=== PATIENT | male | born 1965 | race American Indian/Alaskan Native ===

== ENCOUNTER 2021-12-28 09:43 | Emergency (ER) | payer MEDICAID ==
[2021-12-28 10:41] LABS: Alanine Aminotransferase 146 units/L (7-56); Albumin 3.9 g/dL (3.9-5); BUN/Creatinine Ratio 12; Blood Urea Nitrogen 13 mg/dL (9-20); Calcium 8.7 mg/dL (8.4-10.2); Hemolysis Index 11
[2021-12-28 11:11] LABS: Eosinophils # (Auto) 0.2 K/mm3 (0.0-0.4); Eosinophils % (Auto) 6.4 % (0.0-4.3); Hematocrit 36.9 % (35.5-45.6); Hemoglobin 12.7 gm/dl (11.8-15.2); Mean Corpuscular HGB Conc 35 % (32-34); Mean Corpuscular Volume 99 fl (84-94); Monocytes # (Auto) 0.5 K/mm3 (0.0-0.8); Monocytes % (Auto) 13.2 % (0.0-7.3); Platelet Count 189 K/mm3 (140-440); Red Blood Count 3.72 M/mm3 (3.65-5.03); Red Cell Distribution Width 12.7 % (13.2-15.2)
[2021-12-28 12:30] LABS: Basophils % (Manual) 0 % (0.0-1.8); Total Cells Counted 100
[2021-12-28 12:32] LABS: Anisocytosis 1+; Hypochromasia 1+; Platelet Estimate Consistent w Auto
--- NOTE | 2021-12-28 19:50 | Emergency Department Report ---
<TUCKER WINN - Last Filed: 12/28/21 19:55> ED Psych HPI - General Chief Complaint: Psych Stated Complaint: SCHIZOPHRENIA Time Seen by Provider: 12/28/21 19:44 Source: patient, EMS Mode of arrival: Stretcher Limitations: No Limitations - History of Present Illness Initial Comments: Patient is a 56-year-old male presenting to the emergency department with complaint of suicidal ideations. Patient with history of schizophrenia. He also states he has been off of his medications. MD Complaint: suicidal ideation - Related Data Previous Rx's Medication Instructions Recorded Last Taken Type OLANzapine [Zyprexa] 10 mg PO QHS #30 tablet 12/29/21 Unknown Rx Allergies Allergy/AdvReac Type Severity Reaction Status Date / Time No Known Allergies Allergy Unverified 12/28/21 09:50 ED Review of Systems Constitutional: denies: chills, fever Eyes: denies: eye pain, eye discharge, vision change ENT: denies: ear pain, throat pain Respiratory: denies: cough, shortness of breath, wheezing Cardiovascular: denies: chest pain, palpitations Endocrine: no symptoms reported Gastrointestinal: abdominal pain. denies: nausea, diarrhea Genitourinary: denies: urgency, dysuria Musculoskeletal: denies: back pain, joint swelling, arthralgia Skin: denies: rash, lesions Neurological: denies: headache, weakness, paresthesias Psychiatric: denies: anxiety, depression Hematological/Lymphatic: denies: easy bleeding, easy bruising ED Past Medical Hx - Medications Home Medications: Home Medications Medication Instructions Recorded Confirmed Last Taken Type OLANzapine [Zyprexa] 10 mg PO QHS #30 tablet 12/29/21 Unknown Rx ED Physical Exam - General Limitations: No Limitations General appearance: alert, in no apparent distress - Head Head exam: Present: atraumatic, normocephalic - Eye Eye exam: Present: normal appearance - ENT ENT exam: Present: mucous membranes moist - Neck Neck exam: Present: normal inspection - Respiratory Respiratory exam: Present: normal lung sounds bilaterally. Absent: respiratory distress - Cardiovascular Cardiovascular Exam: Present: regular rate, normal rhythm. Absent: systolic murmur, diastolic murmur, rubs, gallop - GI/Abdominal GI/Abdominal exam: Present: soft, tenderness (ruq), normal bowel sounds - Rectal Rectal exam: Present: deferred - Extremities Exam Extremities exam: Present: normal inspection - Back Exam Back exam: Present: normal inspection - Neurological Exam Neurological exam: Present: alert, oriented X3 - Psychiatric Psychiatric exam: Present: suicidal ideation - Skin Skin exam: Present: warm, dry, intact, normal color. Absent: rash ED Course - Reevaluation(s) Reevaluation #1: 12/28/21 19:56 Patient's labs do demonstrate elevated LFTs. Is likely secondary to patient's alcohol use. Patient does have a alcohol level of 260. A ultrasound was ordered at the right upper quadrant but patient will likely be medically cleared and will be a psychiatric hold. We will avoid hepatotoxic medications. ED Medical Decision Making - Lab Data Result diagrams: 12/28/21 10:02 12/28/21 10:02 - Medical Decision Making Patient is a 56-year-old male presents emergency department complaint of suicidal ideations. Patient also states that he has depression. From chart review patient has a history of schizophrenia and states he has been off of his medications. Plan to obtain basic labs to medically clear and will reassess patient. ED Disposition Clinical Impression: Suicidal ideation, Elevated LFTs, Alcohol abuse Disposition: 01 HOME / SELF CARE / HOMELESS Is pt being admited?: No Does the pt Need Aspirin: No Condition: Stable Additional Instructions: OUTPATIENT MENTAL HEALTH RESOURCES [facility], [facility] Celena Esteban MD: [address] [facility] [address] [place] [address] [place], [place] [id number] [facility]: [facility] [address] [place] [address] [place] [address] [phone] [facility]: [facility]: [address] [facility] [address] [facility] [place] [address] [facility] [id number] [facility]: Shubham Jenkins MD: [id number] [facility] [address] [facility] [id number] [facility]: [address] [place], [place] [id number] [phone] [place] CRISIS AND ACCESS LINE: Prescriptions: OLANzapine [Zyprexa] 10 mg PO QHS #30 tablet Referrals: PRIMARY CARE, [Primary Care Provider] - 3-5 Days <ROMINA ORELLANA - Last Filed: 12/30/21 16:31> ED Review of Systems ROS: Stated complaint: SCHIZOPHRENIA Other details as noted in HPI ED Course Vital Signs 12/28/21 12/28/21 12/29/21 09:49 20:29 06:08 Temperature 97.9 F 98.9 F Pulse Rate 78 75 Respiratory 14 16 Rate Blood Pressure 104/75 103/77 [Left] O2 Sat by Pulse 98 98 99 Oximetry 12/29/21 08:04 Temperature 97.9 F Pulse Rate 78 Respiratory 18 Rate Blood Pressure 124/80 [Left] O2 Sat by Pulse 98 Oximetry ED Medical Decision Making - Lab Data Result diagrams: 12/28/21 10:02 12/28/21 10:02 Critical care attestation.: If time is entered above; I have spent that time in minutes in the direct care of this critically ill patient, excluding procedure time. ED Disposition Time of Disposition: 15:12
--- NOTE | 2021-12-28 21:46 | Ultrasound Report ---
ULTRASOUND ABDOMEN, LIMITED (RIGHT UPPER QUADRANT) INDICATION: elevated lfts. COMPARISON: None available. FINDINGS: Pancreas: Visualized portion shows no significant abnormality. Liver: Normal in size, measuring 15.3 cm. There is generalized increased echotexture. No suspicious l iver lesions. Normal portal venous flow. Gallbladder: Mildly distended without wall thickening or pericholecystic fluid. No gallstones are see n. Sonographic Li's sign: Not performed. Bile ducts: No significant abnormality. Common Bile Duct measures 3.8 mm. Free fluid: None. Additional Findings: None. IMPRESSION: 1. Increased hepatic echotexture, most commonly representing steatosis. 2. Mild distention of the gallbladder could be secondary to fasting. No cholelithiasis or sonographic evidence of acute cholecystitis. Signer Name: Anoop Ross MD Signed: 12/28/2021 9:42 PM Workstation Name: [id number]
[2021-12-29 01:40] LABS: WBC,Urine < 1.0 /HPF (0.0-6.0)
[2021-12-29 01:45] LABS: Amphetamine Screen,Urine PRESUMPTIVE NEGATIVE; Benzodiazepines Screen,Urine PRESUMPTIVE NEGATIVE; Cannabinoid Screen,Urine PRESUMPTIVE NEGATIVE; Cocaine Screen,Urine PRESUMPTIVE POSITIVE; Methadone Screen,Urine PRESUMPTIVE NEGATIVE; Opiate Screen,Urine PRESUMPTIVE NEGATIVE
[2021-12-29 01:53] LABS: Bilirubin,Urine Negative (Negative); Blood,Urine Small (Negative); Color,Urine Yellow (Yellow)
[2021-12-29 01:54] LABS: Protein,Urine <15 mg/dL mg/dL (Negative); Urobilinogen,Urine < 2.0 mg/dL (<2.0)
[2021-12-29 08:04] VITALS: BP 124/80
--- NOTE | 2021-12-29 11:57 | Event Note ---
Date: 12/29/21 Pt is been seen followed by the psychiatry team this morning just waiting for recommendation. Pt denies any other symptoms at this point. I discussed the elevated liver enzyme and able to connect his alcohol drinking with the abnormality and he promised to cut back on the alcohol abuse. Pt had negative Covid 19 reported this AM. No other modifying or associated symptoms mentioned. Pt seen by the psychiatry and discharged and discontinued the 1013 and recommended Zyprexa--
--- NOTE | 2021-12-29 13:23 | Consultation ---
History of Present Illness - Reason for Consult Consult date: 12/29/21 Reason for consult: Schizophrenia Requesting physician: TUCKER WINN - Chief Complaint Chief complaint: Hearing voices - History of Present Psychiatric Illness The patient, a 56 year old man, with a PMH of schizophrenia. The patient admits noncompliance with medications. He reports hearing voices often. He admits to hearing voices today but not distressed by the voices. He feels safe going home. Patient describes a good and stable mood, denies being depressed or excessively nervous. Patient eats and sleeps well. Patient denies panic attacks, recurrent nightmares or flashbacks. Patient denies symptoms suggestive of OCD or PTSD. Patient denies paranoia, thought interference and no features suggestive of hypo nafisa or nafisa. He completely denies suicidal or homicidal thoughts. PAST PSYCHIATRIC HISTORY: Diagnoses: Schizophrenia Suicide attempts or Self-harm behavior: 1 suicide attempt in the past Prior psychiatric hospitalizations: unknown Substance Abuse history: denies Previous psychiatric medications tried: Risperidone; Olanzapine Outpatient treatment: [facility] Family Psychiatric History None reported or documented SOCIAL HISTORY Marital Status: single Living Arrangements: lives with others Employment Status: unemployed, disabled Access to guns/weapons: denies Education: 9th grade History of Abuse: denies Legal History: denies ROS: Constitutional: Negative for weight loss ENT: Negative for stridor Respiratory: Negative for cough or hemoptysis All other systems reviewed and are negative MENTAL STATUS General Appearance and Behavior: age appropriate, good eye contact, cooperative with questioning and polite Cooperation: Cooperative Psychomotor Behavior: within normal limits Mood: OK Affect and affective range: Congruent with stated mood Thought Process: Fluent/Logical and Goal-directed Thought Content: Within reality Speech: Normal volume and Regular rate and rhythm Intellectual Functioning Average Suicidal Ideation: Denies SI Homicidal Ideation: Denies HI Impulse Control: intact Insight and Judgment: normal insight and judgment Memory: Normal Attention: Normal Orientation: alert and oriented RECOMMENDATIONS MEDICATIONS: Olanzapine 10mg qhs Risks, benefits and alternatives of medications discussed with the patient, questions answered and consent obtained from patient. PSYCHOTHERAPY: Supportive psychotherapy provided MEDICAL: Per primary team KINDER TEACHER: No DISPOSITION: Per primary team, no indication for acute inpatient psychiatric hospitalization at this time LEGAL STATUS: 1013 discontinued FOLLOW-UP: Will sign off The patient agreed on the treatment plan, understood the risk, benefit, alternative treatment, potential consequence of no treatment, and gave informed consent. I have reviewed this treatment plan, including potential risks and benefits of medications, with the patient and/or family members and relevant hospital providers. Please contact with any questions and/or concerns. Medications and Allergies Allergies Allergy/AdvReac Type Severity Reaction Status Date / Time No Known Allergies Allergy Unverified 12/28/21 09:50 Mental Status Exam - Vital signs Last Vital Signs Temp 97.9 F 12/29/21 08:04 Pulse 78 12/29/21 08:04 Resp 18 12/29/21 08:04 BP 124/80 12/29/21 08:04 Pulse Ox 98 12/29/21 08:04 Results Result Diagrams: 12/28/21 10:02 12/28/21 10:02 Abnormal lab results 12/28/21 Range/Units 00:46 Urine Blood Small A (Negative) All other labs normal.
== END 2021-12-29 16:22 | disposition home or self-care (01) ==
LOC: ED 09:43
DX: R45.851 Suicidal ideations (principal); R74.01 Elevation of levels of liver transaminase levels; F10.10 Alcohol abuse, uncomplicated; F20.9 Schizophrenia, unspecified; Z20.822 Contact with and (suspected) exposure to COVID-19
CPT/HCPCS: 36415; 76705; 80053; 80307; 81001; 85007; 85025; 99285; U0003; 80320; G0480

== ENCOUNTER 2022-03-11 01:25 | Emergency (ER) | payer MEDICAID ==
[2022-03-11 03:04] VITALS: BP 120/80
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
[2022-03-11 05:49] LABS: Hematocrit 36.6 % (35.5-45.6); Hemoglobin 12.3 gm/dl (11.8-15.2); Mean Corpuscular HGB Conc 34 % (32-34); Mean Corpuscular Volume 101 fl (84-94); Platelet Count 211 K/mm3 (140-440); Red Blood Count 3.62 M/mm3 (3.65-5.03); Red Cell Distribution Width 12.4 % (13.2-15.2)
[2022-03-11 06:00] LABS: BUN/Creatinine Ratio 10; Blood Urea Nitrogen 9 mg/dL (9-20); Calcium 8.1 mg/dL (8.4-10.2); Hemolysis Index 7
[2022-03-11 07:02] LABS: Anisocytosis 1+; Basophils % (Manual) 0 % (0.0-1.8); Platelet Estimate Consistent w Auto; Total Cells Counted 100
--- NOTE | 2022-03-11 10:45 | Consultation ---
History of Present Illness - Reason for Consult Consult date: 03/11/22 Reason for consult: hallucinations - History of Present Psychiatric Illness The patient was seen today. He is calm and cooperative. His symptoms are vague. The patient says he's been going through stuff. He says "lots of stuff" when asked what was he going through. The patient says he lives in a boarding house and he doesn't like it there. He says he needs somewhere else to go. The patient endorses crack and marijuana use. He says he hears things. He denies them being threatening or harmful in nature. I ask how long had he been hearing things, he says "all the time." The patient says "sometimes" when asking him about and suicidal thoughts. He denies at present. He denies hallucinations of any kind. PAST PSYCHIATRIC HISTORY Diagnoses: Schizophrenia, bipolar Suicide attempts or Self-harm behavior: Yes Prior psychiatric hospitalizations: Yes Substance Abuse history: Crack, THC Previous psychiatric medications tried: could not recall Outpatient treatment: Yes PAST MEDICAL HISTORY: None reported Family Psychiatric History: None reported or documented SOCIAL HISTORY Living arrangement: Lives in boarding home Marital status: Single REVIEW OF SYSTEMS Constitutional: Negative for weight loss ENT: Negative for stridor Respiratory: Negative for cough or hemoptysis All other systems reviewed and are negative MENTAL STATUS EXAMINATION General Appearance and Behavior: Age appropriate, good hygiene, wearing appropriate clothes, fair eye contact, calm, cooperative Cooperation: Participating/engaged Psychomotor Behavior: Psychomotor normal Mood: okay Affect and affective range: congruent with stated mood Thought Process: Goal directed Thought Content: hallucinations Speech: normal tone and pace Suicidal Ideation: sometimes, but denies at present Homicidal Ideation: Denies Hallucinations: Auditory, chronic Delusions: none elicited Impulse Control: Limited Insight and Judgment: Limited insight and judgment Memory: Good Attention: Attentive Orientation: Alert, oriented Assessment and Plan Major Depressive Disorder Cocaine Use Disorder Treatment Olanzapine 10mg po qhs Sitter: Per primary Medical: Per primary Disposition: Do not recommend acute psychiatric inpatient treatment. The patient understands that if SI/HI or any fear of endangerment arise he is to seek immedi ate assistance The grade setter provide resources for drug rehab, and all other necessary outpatient resources The patient to follow up with outpatient psych in 7 to 14 days upon discharge The patient to abstain from all illicit drug use Will sign off. Thank you for this consult Case staffed with Dr. Meng Medications and Allergies Allergies Allergy/AdvReac Type Severity Reaction Status Date / Time No Known Allergies Allergy Unverified 12/28/21 09:50 Home Medications Medication Instructions Recorded Confirmed Last Taken Type OLANzapine [Zyprexa] 10 mg PO QHS #30 tablet 03/11/22 Unknown Rx Mental Status Exam - Vital signs Last Vital Signs Temp 98.4 F 03/11/22 01:36 Pulse 92 H 03/11/22 01:36 Resp 18 03/11/22 01:36 BP 120/80 03/11/22 01:36 Pulse Ox 96 03/11/22 03:58 Results Result Diagrams: 03/11/22 05:26 03/11/22 05:26 Abnormal lab results 03/11/22 03/11/22 03/11/22 Range/Units 05:26 05:26 05:26 WBC (4.5-11.0) K/mm3 RBC (3.65-5.03) M/mm3 MCV (84-94) fl MCH (28-32) pg RDW (13.2-15.2) % Seg Neuts % (Manual) (40.0-70.0) % Lymphocytes % (Manual) (13.4-35.0) % Monocytes % (Manual) (0.0-7.3) % Eosinophils % (Manual) (0.0-4.3) % Seg Neutrophils # Man (1.8-7.7) K/mm3 Potassium 3.4 L (3.6-5.0) mmol/L Calcium 8.1 L (8.4-10.2) mg/dL Salicylates < 0.3 L (2.8-20.0) mg/dL Acetaminophen 5.0 L (10.0-30.0) ug/mL Plasma/Serum Alcohol (0-0.07) % 03/11/22 03/11/22 Range/Units 05:26 05:26 WBC 4.4 L (4.5-11.0) K/mm3 RBC 3.62 L (3.65-5.03) M/mm3 MCV 101 H (84-94) fl MCH 34 H (28-32) pg RDW 12.4 L (13.2-15.2) % Seg Neuts % (Manual) 26.0 L (40.0-70.0) % Lymphocytes % (Manual) 56.0 H (13.4-35.0) % Monocytes % (Manual) 8.0 H (0.0-7.3) % Eosinophils % (Manual) 10.0 H (0.0-4.3) % Seg Neutrophils # Man 1.1 L (1.8-7.7) K/mm3 Potassium (3.6-5.0) mmol/L Calcium (8.4-10.2) mg/dL Salicylates (2.8-20.0) mg/dL Acetaminophen (10.0-30.0) ug/mL Plasma/Serum Alcohol 0.22 H (0-0.07) % All other labs normal.
--- NOTE | 2022-03-11 12:09 | Event Note ---
Date: 03/11/22 The patient was evaluated in the emergency department for symptoms described in the history of present illness. He/she was evaluated in the context of the global COVID-19 pandemic, which necessitated consideration that the patient might be at risk for infection with the virus that causes COVID-19. Institutional protocols and algorithms that pertain to the evaluation of patients at risk for COVID-19 are in a state of rapid change based on information released by regulatory bodies including the CDC and federal and state organizations. These policies and algorithms were followed during the patient's care in the emergency department. Please note that these policies, procedures and recommendations changed on a rapid basis. Laboratory studies, vital signs, nursing documentation, ER documentation, and psychiatric documentation are reviewed and appreciated. Nursing team reports no acute events this morning or concerns. The patient is awake and ambulating and does not appear to be in any acute distress. The patient was deemed medically suitable for psychiatric disposition and placement during his initial ER evaluation. The patient continues to remain medically suitable for psychiatric placement and disposition. He is currently pending psychiatric placement. Psychiatric team have recommended discharge at this time. They do not recommend 1013 or involuntary confinement. The patient is ambulatory, with a steady gait. He is clinically sober at this time Vital Signs 03/11/22 03/11/22 01:36 03:58 Temperature 98.4 F Pulse Rate 92 H Respiratory 18 Rate Blood Pressure 120/80 O2 Sat by Pulse 100 96 Oximetry Vital Signs 03/11/22 03/11/22 01:36 03:58 Temperature 98.4 F Pulse Rate 92 H Respiratory 18 Rate Blood Pressure 120/80 O2 Sat by Pulse 100 96 Oximetry Lab Results 03/11/22 03/11/22 03/11/22 Range/Units 05:26 05:26 05:26 WBC (4.5-11.0) K/mm3 RBC (3.65-5.03) M/mm3 Hgb (11.8-15.2) gm/dl Hct (35.5-45.6) % MCV (84-94) fl MCH (28-32) pg MCHC (32-34) % RDW (13.2-15.2) % Plt Count (140-440) K/mm3 Lymph % (Auto) Add Manual Diff Total Counted Seg Neutrophils % Seg Neuts % (Manual) (40.0-70.0) % Band Neutrophils % % Lymphocytes % (Manual) (13.4-35.0) % Reactive Lymphs % (Man) % Monocytes % (Manual) (0.0-7.3) % Eosinophils % (Manual) (0.0-4.3) % Basophils % (Manual) (0.0-1.8) % Metamyelocytes % % Myelocytes % % Promyelocytes % % Blast Cells % % Nucleated RBC % Seg Neutrophils # Man (1.8-7.7) K/mm3 Band Neutrophils # K/mm3 Lymphocytes # (Manual) (1.2-5.4) K/mm3 Abs React Lymphs (Man) K/mm3 Monocytes # (Manual) (0.0-0.8) K/mm3 Eosinophils # (Manual) (0.0-0.4) K/mm3 Basophils # (Manual) (0.0-0.1) K/mm3 Metamyelocytes # K/mm3 Myelocytes # K/mm3 Promyelocytes # K/mm3 Blast Cells # K/mm3 WBC Morphology Hypersegmented Neuts Hyposegmented Neuts Hypogranular Neuts Smudge Cells Toxic Granulation Toxic Vacuolation Dohle Bodies Pelger-Huet Anomaly Ashley Rods Platelet Estimate Clumped Platelets Plt Clumps, EDTA Large Platelets Giant Platelets Platelet Satelliting Plt Morphology Comment RBC Morphology Dimorphic RBCs Polychromasia Hypochromasia Poikilocytosis Anisocytosis Microcytosis Macrocytosis Spherocytes Pappenheimer Bodies Sickle Cells Target Cells Tear Drop Cells Ovalocytes Helmet Cells Dos [place]-Elton Bodies Lewellen Rings Samuel Cells Bite Cells Crenated Cell Elliptocytes Acanthocytes (Spur) Rouleaux Hemoglobin C Crystals Schistocytes Malaria parasites Wilberto Bodies Hem Pathologist Commnt Sodium 140 (137-145) mmol/L Potassium 3.4 L (3.6-5.0) mmol/L Chloride 106.4 (98-107) mmol/L Carbon Dioxide 23 (22-30) mmol/L Anion Gap 14 mmol/L BUN 9 (9-20) mg/dL Creatinine 0.9 (0.8-1.3) mg/dL Estimated GFR > 60 ml/min BUN/Creatinine Ratio 10 % Glucose 91 (75-100) mg/dL Calcium 8.1 L (8.4-10.2) mg/dL Salicylates < 0.3 L (2.8-20.0) mg/dL Acetaminophen 5.0 L (10.0-30.0) ug/mL Plasma/Serum Alcohol (0-0.07) % 03/11/22 03/11/22 Range/Units 05:26 05:26 WBC 4.4 L (4.5-11.0) K/mm3 RBC 3.62 L (3.65-5.03) M/mm3 Hgb 12.3 (11.8-15.2) gm/dl Hct 36.6 (35.5-45.6) % MCV 101 H (84-94) fl MCH 34 H (28-32) pg MCHC 34 (32-34) % RDW 12.4 L (13.2-15.2) % Plt Count 211 (140-440) K/mm3 Lymph % (Auto) [employer] Add Manual Diff Complete Total Counted 100 Seg Neutrophils % [employer] Seg Neuts % (Manual) 26.0 L (40.0-70.0) % Band Neutrophils % 0 % Lymphocytes % (Manual) 56.0 H (13.4-35.0) % Reactive Lymphs % (Man) 0 % Monocytes % (Manual) 8.0 H (0.0-7.3) % Eosinophils % (Manual) 10.0 H (0.0-4.3) % Basophils % (Manual) 0 (0.0-1.8) % Metamyelocytes % 0 % Myelocytes % 0 % Promyelocytes % 0 % Blast Cells % 0 % Nucleated RBC % Not Reportable Seg Neutrophils # Man 1.1 L (1.8-7.7) K/mm3 Band Neutrophils # 0.0 K/mm3 Lymphocytes # (Manual) 2.5 (1.2-5.4) K/mm3 Abs React Lymphs (Man) 0.0 K/mm3 Monocytes # (Manual) 0.4 (0.0-0.8) K/mm3 Eosinophils # (Manual) 0.4 (0.0-0.4) K/mm3 Basophils # (Manual) 0.0 (0.0-0.1) K/mm3 Metamyelocytes # 0.0 K/mm3 Myelocytes # 0.0 K/mm3 Promyelocytes # 0.0 K/mm3 Blast Cells # 0.0 K/mm3 WBC Morphology Not Reportable Hypersegmented Neuts Not Reportable Hyposegmented Neuts Not Reportable Hypogranular Neuts Not Reportable Smudge Cells Not Reportable Toxic Granulation Not Reportable Toxic Vacuolation Not Reportable Dohle Bodies Not Reportable Pelger-Huet Anomaly Not Reportable Ashley Rods Not Reportable Platelet Estimate Consistent w auto Clumped Platelets Not Reportable Plt Clumps, EDTA Not Reportable Large Platelets Not Reportable Giant Platelets Not Reportable Platelet Satelliting Not Reportable Plt Morphology Comment Not Reportable RBC Morphology Not Reportable Dimorphic RBCs Not Reportable Polychromasia Not Reportable Hypochromasia Not Reportable Poikilocytosis Not Reportable Anisocytosis 1+ Microcytosis Not Reportable Macrocytosis Not Reportable Spherocytes Not Reportable Pappenheimer Bodies Not Reportable Sickle Cells Not Reportable Target Cells Not Reportable Tear Drop Cells Not Reportable Ovalocytes Not Reportable Helmet Cells Not Reportable [place]ton Bodies Not Reportable Lewellen Rings Not Reportable Samuel Cells Not Reportable Bite Cells Not Reportable Crenated Cell Not Reportable Elliptocytes Not Reportable Acanthocytes (Spur) Not Reportable Rouleaux Not Reportable Hemoglobin C Crystals Not Reportable Schistocytes Not Reportable Malaria parasites Not Reportable Wilberto Bodies Not Reportable Hem Pathologist Commnt No Sodium (137-145) mmol/L Potassium (3.6-5.0) mmol/L Chloride (98-107) mmol/L Carbon Dioxide (22-30) mmol/L Anion Gap mmol/L BUN (9-20) mg/dL Creatinine (0.8-1.3) mg/dL Estimated GFR ml/min BUN/Creatinine Ratio % Glucose (75-100) mg/dL Calcium (8.4-10.2) mg/dL Salicylates (2.8-20.0) mg/dL Acetaminophen (10.0-30.0) ug/mL Plasma/Serum Alcohol 0.22 H (0-0.07) %
== END 2022-03-11 13:00 | disposition home or self-care (01) ==
LOC: ED 01:25
DX: R45.851 Suicidal ideations (principal); F17.200 Nicotine dependence, unspecified, uncomplicated; F10.20 Alcohol dependence, uncomplicated; F31.9 Bipolar disorder, unspecified; F20.9 Schizophrenia, unspecified
CPT/HCPCS: 36415; 80048; 80320; 85007; 85025; 99284; G0480